=== PATIENT | female | born 1975 | race Caucasian/White ===

== ENCOUNTER 2018-03-22 14:46 | Inpatient (IN) ==
[2018-03-25 16:12] VITALS: BP 128/72
== END 2018-03-25 17:30 | disposition home or self-care (01) | DRG 603 ==
LOC: N.ED 14:46 → N.EDINP 18:45 → SUATTDRO 18:45 → N.3E 20:32
PROVIDERS: ADMIT Internal Medicine Cardiovascular Disease; ATTEND Hospitalist